=== PATIENT | female | born 1980 | race Caucasian/White ===

== ENCOUNTER 2019-12-19 17:35 | Emergency (ER) | payer OTHER ==
[2019-12-19] MEDS ORDERED: LIDOCAINE 5% TOPICAL PATCH TP ONE (17:51)
--- NOTE | 2019-12-19 17:54 | PDOC ---
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 Progressive pain and spasm. History of disc disease, but no radicular symptoms are present. Taking meloxicam and cyclobenzaprine. No saddle anesthesia or bowel bladder incontinence or retention - Physicial Exam PE: 12/19/19 18:14 PE: Vital signs normal Paravertebral spasm in the lumbosacral area, no point tenderness or inflammation over the vertebral bodies. Mild straightening of the normal lumbar lordosis. Straight leg raising negative. No distal sensory or motor deficits. - Medical Decision Making 12/19/19 18:15 Assessment: Low back strain, muscle spasm, no signs or symptoms of herniated disc Plan: Symptomatic treatment, rest, heat, and follow-up if no improvement 3 to 5 days primary physician or orthopedist. Fully ambulatory and in no significant distress at discharge to follow-up as directed
[2019-12-19] MEDS ORDERED: LIDOCAINE 5% TOPICAL PATCH ONE (17:58)
[2019-12-19 18:10] VITALS: BP 115/82; PULSE 86; TEMP 98.7; BMI 28.8
--- NOTE | 2019-12-19 18:21 | PDOC ---
History of Present Illness - General Chief Complaint: Back Pain Stated Complaint: BACK PAIN Time Seen by Provider: 12/19/19 17:42 History Source: Patient Exam Limitations: No Limitations - History of Present Illness Initial Comments: 12/19/19 18:36 39y F with PMH of herniated discs presenting to ED with low back pain. 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 She says she was having pain with lifting her legs which she felt in her back. She went home and took Flexeril and Mobic which helped. This AM she still felt sore but denies leg pain, leg weakness, shooting pains, numbness/tingling, difficulty with ambulation, urinary retention/incontinence. Pain is worse when sitting down, better when standing. Past History - Past Medical History Allergies/Adverse Reactions: Allergies Allergy/AdvReac Type Severity Reaction Status Date / Time No Known Allergies Allergy Verified 12/19/19 17:41 Home Medications: Ambulatory Orders Cyclobenzaprine HCl 10 mg PO ONCE 12/19/19 Lidocaine 5% Patch [Lidoderm Patch -] 1 patch TP DAILY #7 patch 12/19/19 Meloxicam 15 mg PO ONCE 12/19/19 COPD: No - Immunization History Immunization Up to Date: Yes - Psycho Social/Smoking Cessation Hx Smoking History: Never smoked Hx Alcohol Use: No Drug/Substance Use Hx: No Review of Systems - Review of Systems Constitutional: No: Symptoms Reported HEENTM: No: Symptoms Reported Respiratory: No: Symptoms reported Cardiac (ROS): No: Symptoms Reported ABD/GI: No: Symptoms Reported : No: Symptoms Reported Musculoskeletal: Yes: See HPI Integumentary: No: Symptoms Reported Neurological: No: Symptoms reported *Physical Exam - Vital Signs Last Vital Signs Temp Pulse Resp BP Pulse Ox 98.7 F 86 16 115/82 100 12/19/19 17:41 12/19/19 17:41 12/19/19 17:41 12/19/19 17:41 12/19/19 17:41 - Physical Exam General Appearance: Yes: Nourished, Appropriately Dressed. No: Apparent Distress HEENT: positive: EOMI, DENISSE Musculoskeletal: positive: Other (negative SLR bilaterally). negative: CVA Tenderness, Decreased Range of Motion, Muscle Spasm, Vertebral Tenderness Extremity: positive: Normal Capillary Refill. 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 vitals wnl no radiculopathy appreciated, negative SLR. no pain with palpation midline. pain alleviated with palpation of paraspinal muscles. low suspicion for sciatica, cord compression, cauda equina at this time. suspect muscle sprain. -lidoderm patch. pt is ambulatory, will dc home. work note given. rx for lidoderm patch. Discharge - Discharge Information Problems reviewed: Yes Clinical Impression/Diagnosis: Back pain Qualifiers: Back pain location: low back pain Chronicity: acute Back pain laterality: bilateral Sciatica presence: without sciatica Qualified Code(s): M54.5 - Low back pain Condition: Improved Disposition: HOME - Admission No - Additional Discharge Information Prescriptions: Lidocaine 5% Patch [Lidoderm Patch -] 1 patch TP DAILY #7 patch - Follow up/Referral Referrals: Lamin Zapata [Primary Care Provider] - - Patient Discharge Instructions Patient Printed Discharge Instructions: DI for Low Back Pain Additional Instructions: You were seen in the ER for low back pain. I do not think that this is related to the herniated discs. I recommend taking NSAIDs and applying ice or a heating pad. A prescription for a lidoderm patch was sent to your pharmacy. I recommend sleeping on a hard surface and doing stretches. Come back to the ER if you have worsening back pain, numbness in the groin area , have difficulty walking or if any new or concerning symptom develops. Thank you - Post Discharge Activity Work/Back to School Note: Back to Work
[2019-12-19] MEDS ORDERED: LIDOCAINE PATCH REMOVAL MC SCH (22:00)
== END 2019-12-19 18:21 | disposition home or self-care (01) ==
LOC: FER 17:35
DX: M54.5 Low back pain (principal)
CPT/HCPCS: 99283-25